=== PATIENT | female | born 1975 | race Caucasian/White ===

== ENCOUNTER 2025-06-21 18:50 | Inpatient (IN) | payer BC ==
[~2025-06-21] VITALS: Ht 160 cm; Wt 89.4 kg
[2025-06-21] MEDS: IV NS 0.9% 1,000 ML BAG IV ONE (19:17)
[2025-06-21 19:48] LABS: PLATELET COUNT (AUTO) 391 K/uL (150-450); RED BLOOD CELL COUNT(AUTO) 4.64 MIL/uL (4.0-5.2); RED CELL DISTRIBUTION WIDTH 15.0 % (11.5-15.0); WHITE BLOOD COUNT (AUTO) 9.7 K/uL (4.3-11.0)
[2025-06-21 20:02] LABS: CALCIUM, SERUM 9.5 mg/dL (8.5-10.1); CREATININE 1.1 mg/dL (0.6-1.3); SODIUM SERUM 133 mmol/L (136-145); UREA NITROGEN, BLOOD 12 mg/dL (7-18)
[2025-06-21 20:06] LABS: ASPARTATE AMINOTRANSFERASE 18 U/L (15-37); TOTAL PROTEIN, SERUM 7.9 g/dL (6.4-8.2)
[2025-06-21 20:14] LABS: NT-PRO BNP 121 pg/mL (0-125)
[2025-06-21 20:15] LABS: LACTIC ACID 3.3 mmol/L (0.4-2.0)
[2025-06-21 20:19] LABS: INR 1.04 (0.91-1.10)
[2025-06-21] MEDS: INSULIN REGULAR, HUMAN 100 UNIT/ML 10 ML VIAL SQ ONE (20:26)
[2025-06-21] MEDS ORDERED: IOHEXOL-350 100 ML VIAL IV ONE (20:43)
[2025-06-21] MEDS ORDERED: CT SWABBABLE VALVE TRANS SET 1 EA INFUS.SET MC ONE (20:43)
[2025-06-21] MEDS ORDERED: IV NS 0.9% 250 ML IV ONE (20:43)
[2025-06-21 21:17] LABS: APPEARANCE,URINE CLEAR (CLEAR); BLOOD, URINE 1+ Ery/uL (NEGATIVE); LEUKOCYTE ESTERASE ,URINE NEGATIVE (NEGATIVE); NITRITE, URINE NEGATIVE (NEGATIVE); UGLUCOSE TRACE mg/dL (NEGATIVE)
[2025-06-21] MEDS: METOCLOPRAMIDE HCL 10 MG/2 ML VIAL IV ONE (21:31)
[2025-06-21 21:37] LABS: ADD URINE CULTURE YES
[2025-06-21 21:38] LABS: SQUAMOUS EPITHELIAL CELL,UR 0-2 /HPF (None Seen)
[2025-06-21] MEDS: KETOROLAC TROMETHAMINE 15 MG/ML VIAL IV ONE (21:47)
[2025-06-21] MEDS ORDERED: MAGNESIUM HYDROXIDE 30 ML UDC PO PRN (22:30)
[2025-06-21] MEDS ORDERED: ONDANSETRON HCL/PF 4 MG/2 ML VIAL IVP PRN (22:30)
[2025-06-21] MEDS ORDERED: ACETAMINOPHEN 325 MG TABLET PO PRN (22:30)
[2025-06-21] MEDS ORDERED: DEXTROSE 50%-WATER 50 ML DISP.SYRIN IV PRN (22:30)
[2025-06-21] MEDS ORDERED: MAG HYDROX/AL HYDROX/SIMETH 30 ML UDC PO PRN (22:30)
[2025-06-21] MEDS ORDERED: Z GUARD REMEDY 4 OZ OINT TP PRN (22:30)
[2025-06-21 23:00] VITALS: BP 130/90; TEMP 97.5; O2SAT 99
[2025-06-21 23:10] VITALS: BP_SYST 130; BP_SYST 150; BP_DIAS 90; BP_DIAS 92; TEMP 97.5; O2SAT 99
[2025-06-21] MEDS: IV NS 0.9% 1,000 ML IV SCH (23:35)
[2025-06-21] MEDS: MORPHINE SULFATE INJ 4 MG/ML DISP.SYRIN IV PRN (23:42)
[2025-06-22 04:00] VITALS: BP 115/65; TEMP 97.9; O2SAT 100
[2025-06-22] MEDS: BLOOD SUGAR DIAGNOSTIC 1 EACH STRIP IN SCH (05:52)
[2025-06-22] MEDS: INSULIN REGULAR, HUMAN 100 UNIT/ML 3 ML VIAL SQ PRN (06:08)
[2025-06-22 06:25] LABS: PLATELET COUNT (AUTO) 356 K/uL (150-450); RED BLOOD CELL COUNT(AUTO) 4.31 MIL/uL (4.0-5.2); RED CELL DISTRIBUTION WIDTH 15.1 % (11.5-15.0); WHITE BLOOD COUNT (AUTO) 9.0 K/uL (4.3-11.0)
[2025-06-22 06:31] LABS: LDL 72 mg/dL (0-99)
[2025-06-22 06:45] LABS: CALCIUM, SERUM 8.5 mg/dL (8.5-10.1); CREATININE 0.9 mg/dL (0.6-1.3); PHOSPHORUS 2.4 mg/dL (2.5-4.9); SODIUM SERUM 140 mmol/L (136-145); UREA NITROGEN, BLOOD 10 mg/dL (7-18)
[2025-06-22] MEDS: IV NS 0.9% 1,000 ML IV PRN (07:59)
[2025-06-22] MEDS ORDERED: ACYC400T19 PO (08:40)
[2025-06-22] MEDS ORDERED: ATOR20TA PO (08:40)
[2025-06-22] MEDS ORDERED: FLUO20CA42 PO (08:40)
[2025-06-22] MEDS ORDERED: FLUT16SP16 BNOSTRILS (08:40)
[2025-06-22] MEDS ORDERED: AMLO-212 PO (08:40)
[2025-06-22] MEDS ORDERED: METF-442 PO (08:40)
[2025-06-22] MEDS ORDERED: LISI-768 PO (08:40)
[2025-06-22] MEDS ORDERED: MOUNJARO SQ (08:40)
[2025-06-22 08:56] VITALS: BP 106/68; TEMP 98.2; O2SAT 99
[2025-06-22] MEDS: PANTOPRAZOLE 40 MG VIAL IV SCH (09:20)
[2025-06-22] MEDS ORDERED: METH-647 PO (13:20)
[2025-06-22] MEDS ORDERED: ONDA4TAB11 PO (13:20)
[2025-06-22] MEDS: METHOCARBAMOL (500MG) 500 MG TABLET PO ONE (13:37)
[2025-06-22] MEDS: NEUTRA PHOS 1 POWD.PACKET PO ONE (15:31)
[2025-06-22 16:05] VITALS: BP 106/70; TEMP 97.9; O2SAT 100
== END 2025-06-22 18:20 | disposition home or self-care (01) | DRG 206 ==
LOC: ER 18:52 → TELE 22:50
DX: M94.0 Chondrocostal junction syndrome [Tietze] (principal); E87.20 Acidosis, unspecified; E87.1 Hypo-osmolality and hyponatremia; A05.9 Bacterial foodborne intoxication, unspecified; E86.0 Dehydration; E87.5 Hyperkalemia; Z87.891 Personal history of nicotine dependence; E66.9 Obesity, unspecified; Z68.34 Body mass index [BMI] 34.0-34.9, adult; I10 Essential (primary) hypertension; Z88.2 Allergy status to sulfonamides; E11.9 Type 2 diabetes mellitus without complications; E78.5 Hyperlipidemia, unspecified; Z79.85 Long-term (current) use of injectable non-insulin antidiabetic drugs; Z79.84 Long term (current) use of oral hypoglycemic drugs; F12.90 Cannabis use, unspecified, uncomplicated
CPT/HCPCS: 36415; 71045-TC; 80048-TC; 80061-TC; 80076-TC; 81001; 82962-TC; 83605-TC; 83690-TC; 83735-TC; 83880; 84100-TC; 84484-TC; 84702-TC; 85025-TC; 85730-TC; 87040-TC; 87086-TC; 93307-TC; A4223; G0378; J1815; J1885; J2270; J2470; J2765; J7030; J7050; Q9967